=== PATIENT | male | born 1995 | race Caucasian/White ===

== ENCOUNTER 2025-05-13 10:22 | Inpatient (IN) | payer OTHER ==
[~2025-05-13] VITALS: Ht 180.3 cm; Wt 91.0 kg
[2025-05-13 10:49] LABS: PLATELET COUNT (AUTO) 312 K/uL (150-450); RED BLOOD CELL COUNT(AUTO) 4.91 MIL/uL (4.50-5.90); RED CELL DISTRIBUTION WIDTH 13.6 % (11.5-14.5); WHITE BLOOD COUNT (AUTO) 9.1 K/uL (4.5-11.0)
[2025-05-13 10:58] LABS: CALCIUM, TOTAL 9.5 mg/dL (8.8-10.5); CREATININE 1.58 mg/dL (0.60-1.30); GLOMERULAR FILTR. RATE CALC 51.0 mL/min (>60); GLUCOSE,RANDOM 94.0 mg/dL (70-110); SODIUM SERUM 137.0 mmol/L (136-145); UREA NITROGEN, BLOOD 24.0 mg/dL (7-18)
[2025-05-13 11:04] LABS: ASPARTATE AMINOTRANSFERASE 17 U/L (15-37); TOTAL PROTEIN, SERUM 7.5 g/dL (6.4-8.2)
[2025-05-13 11:14] LABS: ALCOHOL, BLOOD (SERUM) < 3 mg/dL (0-10)
[2025-05-13] MEDS: SODIUM CHLORIDE 0.9% 1,000 ML IV ONE ×2 (11:20→19:59)
[2025-05-13 12:41] LABS: APPEARANCE,URINE CLEAR (CLEAR); GLUCOSE, URINE (UA) NEGATIVE (NEGATIVE); LEUKOCYTE ESTERASE ,URINE NEGATIVE (NEGATIVE); NITRATE,URINE NEGATIVE (NEGATIVE); OCCULT BLOOD,URINE NEGATIVE (NEGATIVE); PH,URINE DRUG SCREEN 5.5 (5.0-8.0); SPECIFIC GRAVITIY, URINE 1.014 (1.003-1.030)
[2025-05-13 12:46] LABS: AMPHET/METH SCREEN,URINE POSITIVE (NEGATIVE); BARBITURATE SCREEN, URINE NEGATIVE (NEGATIVE); CANNABINOID SCREEN,URINE NEGATIVE (NEGATIVE); COCAINE SCREEN,URINE NEGATIVE (NEGATIVE); METHADONE SCREEN, URINE NEGATIVE (NEGATIVE)
[2025-05-13 12:54] LABS: ALCOHOL, URINE DRUG SCREEN NEGATIVE (NEGATIVE)
[2025-05-13 14:27] LABS: CALCIUM, TOTAL 9.2 mg/dL (8.8-10.5); CREATININE 1.24 mg/dL (0.60-1.30); GLOMERULAR FILTR. RATE CALC > 60 mL/min (>60); GLUCOSE,RANDOM 93 mg/dL (70-110); SODIUM SERUM 139 mmol/L (136-145); UREA NITROGEN, BLOOD 21 mg/dL (7-18)
[2025-05-13] MEDS ORDERED: ONDANSETRON HCL 4 MG/2 ML VIAL IVP PRN (16:45)
[2025-05-13] MEDS ORDERED: MAGNESIUM HYDROXIDE SUSPENSION 30 ML UDCUP PO PRN (16:45)
[2025-05-13] MEDS ORDERED: ACETAMINOPHEN 325 MG TABLET PO PRN (16:45)
[2025-05-13] MEDS ORDERED: BISACODYL 10 MG RECTAL RECTAL SUPPOSITORY PR PRN (16:45)
[2025-05-13] MEDS: ZOLPIDEM TARTRATE 5 MG TABLET PO PRN (19:58)
[2025-05-13] MEDS: DOCUSATE SODIUM 100 MG CAPSULE PO SCH (21:00)
[2025-05-13 21:55] VITALS: BP 125/78; PULSE 94; RESP 18; TEMP 99; O2SAT 99
[2025-05-14] VITALS (7 sets, daily range): BP systolic 118–147; BP diastolic 66–91; PULSE 70–93; RESP 18–20; TEMP 97.7–98.7; O2SAT 96–100
[2025-05-14] MEDS: HEPARIN SODIUM,PORCINE 5,000 UNITS/ML VIAL SQ SCH (00:53)
[2025-05-14 06:13] LABS: CALCIUM, TOTAL 8.7 mg/dL (8.8-10.5); CREATININE 0.99 mg/dL (0.60-1.30); GLOMERULAR FILTR. RATE CALC > 60 mL/min (>60); GLUCOSE,RANDOM 85 mg/dL (70-110); SODIUM SERUM 140 mmol/L (136-145); UREA NITROGEN, BLOOD 16 mg/dL (7-18)
[2025-05-14 06:39] LABS: PLATELET COUNT (AUTO) 295 K/uL (150-450); RED BLOOD CELL COUNT(AUTO) 4.57 MIL/uL (4.50-5.90); RED CELL DISTRIBUTION WIDTH 13.6 % (11.5-14.5); WHITE BLOOD COUNT (AUTO) 7.5 K/uL (4.5-11.0)
[2025-05-14] MEDS: PANTOPRAZOLE SODIUM 40 MG DR TABLET PO SCH (09:00)
[2025-05-15 04:55] VITALS: BP 125/82; PULSE 70; RESP 18; TEMP 97.9; O2SAT 96
[2025-05-15 07:51] VITALS: BP 129/78; PULSE 67; RESP 18; TEMP 97.7; O2SAT 96
[2025-05-15] MEDS: DOLUTEGRAVIR SODIUM 50 MG TABLET PO SCH (08:33)
[2025-05-15 12:00] VITALS: RESP 18
[2025-05-15 16:55] VITALS: RESP 18
[2025-05-15 19:58] VITALS: BP 150/76; PULSE 75; RESP 18; TEMP 98.4; O2SAT 98
[2025-05-16 04:12] VITALS: BP 113/75; PULSE 71; RESP 18; TEMP 97.5; O2SAT 97
[2025-05-16 09:00] VITALS: BP 134/78; PULSE 70; RESP 19; TEMP 97.9; O2SAT 100
[2025-05-16] MEDS ORDERED: DOLU1TAB2 PO (09:50)
== END 2025-05-16 17:26 | DRG 918 ==
LOC: EMS 10:25 → EDBEDREQ 13:32 → EDH 14:51 → 5S 21:50 → 6S 05-14 15:58
PROVIDERS: ADMIT Internal Medicine; ATTEND Internal Medicine
DX: T42.6X2A Poisoning by other antiepileptic and sedative-hypnotic drugs, intentional self-harm, initial encounter (principal); F15.10 Other stimulant abuse, uncomplicated; F12.10 Cannabis abuse, uncomplicated; F10.20 Alcohol dependence, uncomplicated; Y90.9 Presence of alcohol in blood, level not specified; F43.21 Adjustment disorder with depressed mood; F32.9 Major depressive disorder, single episode, unspecified
CPT/HCPCS: 80048; 80076; 80307; 81003; 85025; 93005; 96360; 96361; 99291; G0480; G0481; J1644; J7030; 36415-L1; 36415-TC